=== PATIENT | male | born 1995 | race Caucasian/White ===

== ENCOUNTER 2021-03-01 08:52 | Emergency (ER) | payer OTHER, SELFPAY ==
--- NOTE | ~2021-03-01 | XR_ITS ---
EXAMINATION: XR chest 1V portable INDICATION: Chest pain TECHNIQUE: Portable AP chest at 1008 hours COMPARISON: None available FINDINGS: The lungs are free of acute opacities. There is no pleural effusion or pneumothorax. The ca rdiomediastinal silhouette is normal. The visualized osseous structures are unremarkable. IMPRESSION: 1. No acute cardiopulmonary abnormality. Reviewed, dictated and finalized at location B.
[2021-03-01 08:59] VITALS: BP 137/90; PULSE 92; RESP 11; TEMP 36.6; O2SAT 100
[2021-03-01 09:03] VITALS: PULSE 117
--- NOTE | 2021-03-01 09:38 | ECG_ITS ---
Measurements Intervals [place] Rate: 87 P: 72 WV: 128 QRS: 78 QRSD: 89 T: 65 QT: 334 QTc: 404 Interpretive Statements SINUS RHYTHM WITH SINUS ARRHYTHMIA BASELINE ARTIFACT- I, II, III, AVR, AVL, AVF, V4-V6 NORMAL ECG Electronically Signed On 03-01-2021 10:14:22 CDT by Leland Combs D.O.
[2021-03-01] MEDS: LACTATED RINGERS 1,000 ML 999 ML IV CONT (09:53)
--- NOTE | 2021-03-01 09:53 | PC.NURSE ---
LR initiated as ordered. Pt sobbing uncontrollably with fluids being hung and additional labs being collected. Pt states I'm so scared! . Attempt to give emotional support and have pt slow breathing. Made aware of need for urine collection.
[2021-03-01 10:04] LABS: Basophils Absolute Auto 0.1 K/mm3 (0.0-0.1); Basophils Percent Auto 0.6 % (0.2-1.2); Eosinophils Absolute Auto 0.1 K/mm3 (0-0.3); Eosinophils Percent Auto 1.2 % (0-4.4); Hematocrit 45.4 % (42.0-52.0); Hemoglobin 16.1 g/dL (14.0-18.0); Immature Granulocyte Absolute 0.04 K/mm3 (0.00-0.031); Immature Granulocyte Percent A 0.4 % (0-0.5); Lymphocytes Absolute Auto 1.93 K/mm3 (0.9-3.2); Lymphocytes Percent Auto 21.4 % (18.3-44.2); Mean Corpuscular HGB Conc 35.5 g/dl (32-36); Mean Corpuscular Hemoglobin 30.8 pg (26-34); Mean Corpuscular Volume 86.8 fl (80-100); Mean Platelet Volume 8.5 fl (7.4-10.4); Monocytes Absolute Auto 0.9 K/mm3 (0.1-0.6); Monocytes Percent Auto 9.9 % (2.6-8.5); Neutrophils Percent Auto 66.5 % (45.5-73.1); Platelet Count Result 315 k/mm3 (150-375); Red Blood Count 5.23 M/mm3 (4.6-6.20); Red Cell Distribution Width 12.4 % (11.5-14.5)
--- NOTE | 2021-03-01 10:07 | ED.CHESTPAIN ---
HPI - Chest Pain General Chief Complaint: Chest Pain Stated Complaint: anxiety, CP Time Seen by Provider: 03/01/21 09:01 Source: patient Mode of arrival: ambulatory Limitations: no limitations History of Present Illness HPI narrative: This is a 25 year old male with history of depression and anxiety who presents for evaluation of chest pain. Patient reports he has had sharp chest pain intermittently for months. He reports shooting, numb pain that is located midsternal. He states when he gets this pain this causes his anxiety to worsen. HE also states he has pain with inspiration. He is concerned that he is unhealthy and he wants to make sure he is not having a heart attack. He admits to drinking 12 beers daily , and he states he drinks to help with his fears. He has been drinking beer this morning but he can not tell how may he has had. MD complaint: chest pain Related Data Home Medications Medication Instructions Recorded Confirmed sertraline 50 mg 03/01/21 Allergies Allergy/AdvReac Type Severity Reaction Status Date / Time No Known Allergies Allergy Verified 03/01/21 09:05 Review of Systems Review of Systems: All systems reviewed & are unremarkable except as noted in HPI and below Constitutional: Constitutional: Denies chills and Denies fever(s) Cardiovascular: Cardiovascular: Reports chest pain PMFSH Past Medical History Medical History (Updated 03/01/21 @ 14:06 by Annemarie Mccarthy MD) Anxiety Depression Social History Social History (Updated 03/01/21 @ 10:08 by Annemarie Mccarthy MD) Alcohol intake: current Exam Const: General: alert Orientation/consciousness: patient oriented x3 Other: patient intermittently crying HENMT: Head: normocephalic and atraumatic Eyes: Pupils: Equal, round and reactive pupils present EOM: EOMs intact bilaterally Chest: Chest palpation & inspection: normal inspection of the chest Resp: Effort & Inspection: normal respiratory effort and no retractions Auscultation: clear to auscultation bilaterally Cardio: Rate: regular rate Rhythm: regular rhythm Heart sounds: no murmurs GI: GI Palp: Yes Soft to palpation, No Tenderness to palpation present (GI), No Guarding due to palpation present (GI) and No Rigid due to palpation Auscultation: normal bowel sounds Skin: General skin exam: normal color Rashes: no rashes Neuro: General: patient oriented x3, moves all extremities and CN's II-XI intact bilaterally Psych: Affect: Anxious affect present Course Reevaluation(s) Reevaluation #1: I discussed labs with patient and his mother. He has mild hypokalemia but he was given potassium replacement. His troponin and d dimer have been negative. Date: 03/01/21 Time: 13:59 Vital Signs Vital signs: Vital Signs Temperature 97.9 F 03/01/21 08:59 Pulse Rate 92 03/01/21 08:59 Respiratory Rate 11 L 03/01/21 08:59 Blood Pressure 137/90 03/01/21 08:59 Pulse Oximetry 100 03/01/21 08:59 Temperature 97.9 F 03/01/21 08:59 Pulse Rate 84 03/01/21 14:34 Respiratory Rate 15 03/01/21 14:34 Blood Pressure 132/76 03/01/21 14:34 Pulse Oximetry 100 03/01/21 14:34 MDM - Chest Pain Lab Data Attestation: I reviewed the patient's lab results. Result diagrams: 03/01/21 09:53 03/01/21 09:53 Labs: Lab Results 03/01/21 03/01/21 03/01/21 Range/Units 09:52 09:53 09:53 WBC 9.0 (4.5-10.0) K/mm3 RBC 5.23 (4.6-6.20) M/mm3 Hgb 16.1 (14.0-18.0) g/dL Hct 45.4 (42.0-52.0) % MCV 86.8 (80-100) fl MCH 30.8 (26-34) pg MCHC 35.5 (32-36) g/dl RDW 12.4 (11.5-14.5) % Plt Count 315 (150-375) k/mm3 MPV 8.5 (7.4-10.4) fl Immature Gran % (Auto) 0.4 (0-0.5) % Neut % (Auto) 66.5 (45.5-73.1) % Lymph % (Auto) 21.4 (18.3-44.2) % [place] % (Auto) 9.9 H (2.6-8.5) % Eos % (Auto) 1.2 (0-4.4) % Baso % (Auto) 0.6 (0.2-1.2) % Lymph # (Auto) 1.93
[2021-03-01 10:11] LABS: Lactic Acid Reflex 2.2 mmol/L (0.7-2.1)
[2021-03-01 10:13] LABS: Alanine Aminotransferase 20 U/L (4-50); Albumin Level 4.6 g/dL (3.5-5.1); Alkaline Phosphatase 73 U/L (38-126); Anion Gap 10 mmol/L (8-16); Aspartate Amino Transferase 38 U/L (17-59); Bilirubin,Total 0.6 mg/dL (0.2-1.3); Blood Urea Nitrogen 10 mg/dL (9-20); Calcium 9.1 mg/dL (8.4-10.2); Carbon Dioxide 29 mmol/L (22-30); Chloride 105 mmol/L (98-107); Estimated CRCL calculation 120 ml/min; Estimated Glomerular Filt Rate > 60; Glucose 63 mg/dL (75-110); Lipase 88 U/L (23-300); Magnesium 1.9 mg/dL (1.6-2.3); Potassium 3.3 mmol/L (3.4-5.0); Sodium 144 mmol/L (137-145)
[2021-03-01 10:18] LABS: INR 0.9
[2021-03-01 10:19] LABS: Partial Thromboplastin Time 23.1 SECONDS (22.3-36.8)
[2021-03-01 10:23] LABS: D Dimer 0.27 ug/mL (<0.48)
[2021-03-01 10:26] LABS: Troponin I < 0.012 ng/mL (0.000-0.034)
--- NOTE | 2021-03-01 10:36 | PC.NURSE ---
patient asked for urine sample at this time, patient attempting to give urine.
[2021-03-01] MEDS: THIAMINE HCL INJ 100 MG, FOLIC ACID INJ 1 MG, MULTIVITAMINS-12 INJ VIAL 1 5 ML, MULTIVI... IV CONT (10:41)
[2021-03-01 10:48] VITALS: BP 146/99; PULSE 64; RESP 15; O2SAT 96
[2021-03-01 10:56] LABS: Add Urine Microscopic? NO; Appearance Urine Clear (Clear); Bilirubin Urine Negative (Negative); Blood Urine Negative (Negative); Color Urine Yellow (Yellow); Glucose Urine UA Negative (Negative); Ketones Urine Negative (Negative); Leukocyte Esterase Ur Negative LEU/UL (Negative); Nitrate Urine Negative (Negative); Protein Urine Negative (Negative); Specific Grav Ur 1.015 (1.001-1.035); Urobilinogen Urine Negative mg/dL (<2.0)
[2021-03-01 11:09] LABS: Ethanol 112 mg/dL (<10)
[2021-03-01 11:11] LABS: Amphetamine Screen Urine Positive (Negative); Barbiturate Screen Urine Negative (Negative); Benzodiazepines Screen Urine Negative (Negative); Cannabinoid Screen Urine Positive (Negative); Cocaine Screen Urine Negative (Negative); Methadone Screen Urine Negative (Negative); Opiate Screen Urine Negative (Negative); Phencyclidine Screen Urine Negative (Negative)
--- NOTE | 2021-03-01 11:16 | PC.NURSE ---
Meal ordered for patient at this time. EDP verbal order for regular diet
[2021-03-01] MEDS: POTASSIUM CHLORIDE 20 MEQ TABLET PO (11:59)
[2021-03-01 12:03] VITALS: BP 134/69; PULSE 94; RESP 17; O2SAT 100
[2021-03-01 12:59] LABS: Reflex Lactic Acid Yes or No Add Lactic
[2021-03-01 13:37] LABS: Troponin I < 0.012 ng/mL (0.000-0.034)
[2021-03-01 14:34] VITALS: BP 132/76; PULSE 84; RESP 15; O2SAT 100
== END 2021-03-01 14:39 | disposition home or self-care (01) ==
PROVIDERS: Emergency Provider General Practice
DX: R07.89 Other chest pain (principal); E87.6 Hypokalemia; F10.10 Alcohol abuse, uncomplicated; F15.90 Other stimulant use, unspecified, uncomplicated; Y90.5 Blood alcohol level of 100-119 mg/100 ml; F32.9 Major depressive disorder, single episode, unspecified; F41.9 Anxiety disorder, unspecified; Z79.899 Other long term (current) drug therapy
CPT/HCPCS: 36415; 71045; 80053; 80307; 81003; 83605; 83690; 83735; 84484; 85025; 85380; 85610; 85730; 93005; 96361; 96365; 96366; 99284; A9270; J3411; J3475; J7120; J7121